=== PATIENT | female | born 1975 | race Caucasian/White ===

== ENCOUNTER 2018-09-11 11:11 | Emergency (ER) | payer OTHER ==
[~2018-09-11] VITALS: Ht 160 cm; Wt 86.2 kg
[~2018-09-11 11:11] MED LIST: DILANTIN100 MG PO; MOTRIN800 MG PO; TRAM1TAB98 PO
== END 2018-09-11 16:05 | disposition home or self-care (01) ==
LOC: ER 11:11
DX: N83.292 Other ovarian cyst, left side (principal); N83.291 Other ovarian cyst, right side; R10.31 Right lower quadrant pain